=== PATIENT | male | born 1985 | race African-American/Black ===

== ENCOUNTER 2020-02-02 12:19 | Day surgery (SDC) | payer BC, SELFPAY ==
[2020-02-02] VITALS (7 sets, daily range): BP systolic 104–138; BP diastolic 64–86; PULSE 66–78; RESP 16–18; TEMP 36.4; O2SAT 93–99; BMI 33.6
[2020-02-02 13:18] LABS: Coronavirus 19 IgG Antibody Negative (Negative); Coronavirus 19 IgM Antibody Negative (Negative)
--- NOTE | 2020-02-02 14:59 | P.PCN_ITS ---
[facility] Procedure Note Procedure Note:: Upper Endoscopy Procedure Report: Esophagogastroduodenoscopy with cold biopsies and TTS balloon dilation Endoscopost: Surjit Hook II, MD Referring Physician: Giuliano Reyes MD Date of Procedure: February 02, 2020 Equipment: Olympus GIF 180 standard upper endoscope Sedation: MAC sedation Indications: Mr. Dowling is a 34-year-old gentleman who has developed dysphagia to solids over the last 3 weeks that has progressively worsened. Last week and he had an early food impaction with chicken. He did go to the emergency department but this eventually resolved after several minutes. He has had some increased belching. He does get some odynophagia. His symptoms occur primarily with solids but not liquids. He reports no heartburn, reflux or bloating. Procedure: Prior to the procedure, a history and physical exam was performed, and patient's medications and allergies were reviewed. The risks, benefits and alternatives of the sedation and procedure were discussed with the patient. All questions were answered and informed consent was obtained. The patient was brought to the procedure room. Patient identification and proposed procedure were verified by the physician and the nurse. The patient was placed in a left lateral decubitus position and the scope was passed under direct vision. Throughout the procedure, the patient's blood pressure, pulse, and oxygen saturations were monitored continuously. The upper GI endoscopy was accomplished without difficulty. The patient tolerated the procedure well. Findings: The scope was passed directly into the upper esophagus and advanced to the third portion of the duodenum. The post bulbar duodenum and duodenal bulb were normal but there was some prominence of the ampulla and minor ampulla. The scope was withdrawn through a normal duodenal bulb and pylorus into the stomach. There was a small prepyloric umbilicated benign lesion that was not biopsied. The remainder of the antrum, body and fundus of the stomach were grossly normal. Upon retroflexion there was a very small 1 to 2 cm hiatal hernia. The scope was then withdrawn into the esophagus. There was no evidence of reflux esophagitis or Colin's. There was corrugation and some esophageal stenosis. There was some furrowing. The findings were suggestive of eosinophilic esophagitis. Biopsies were taken from the distal and proximal esophagus. The esophagus was gently dilated to 15 and 18 mm with a TTS hydrostatic balloon in the esophagus. The procedure was then ended. Impression: 1. Esophageal corrugation and stenosis consistent with eosinophilic esophagitis status post dilation to 15 and 18 mm Plan: I will follow-up the biopsies. I am going to recommend omeprazole. I am also going to do RAST food allergy testing. If the biopsies are consistent with eosinophilic esophagitis, I will send prescription for fluticasone. I will have him follow-up in 12 weeks to assess for clinical improvement.
--- NOTE | 2020-02-02 15:16 | P.PN_ITS ---
[facility] Anesthesia Checklist - Patient Identification Patient Identification: Arm Band - Structural Data Admitted From: Home Planned Operative Procedure/s: egd Consent for Planned Operative Procedure(s) Verified: Yes Verified Documents: Surgical Consent, History and Physical - NPO Status Verified Time NPO: 00:00 - Additional verifications Anesthesia Reactions: No - Airway Assessment C-Spine Mobility Assessed: Yes (mp2) TMJ Mobility Assessed: Yes Dentition: Good Dentition - Neurological Assessment Level of Consciousness: Awake, Alert - Anesthesia Plan Anesthesia Risk discussed: Yes Anesthesia Plan: Verified ASA Class: I Anesthesia Type: [facility] History I have reviewed the patient's past medical history: Yes Medical History: Denies:: Cancer, Diabetes Mellitus Type 1, Diabetes Mellitus Type 2, Internal Pacemaker, MRSA, Seizures *Have you ever received a pneumonia vaccine?: No *Have you received a flu vaccine this season?: Yes Anesthesia experience/problems:: nac Laterality Cases: Bilateral: Tonsillectomy Other Surgeries: No: Pacemaker Amputation: No Fractures: Yes - *Social History Alcohol Intake: never Substance Use Type: denies use *Occupational Status:: employed Housing: house *Travel in the last 8 weeks: None Family Hx:: No significant family history
[2020-02-07 11:33] LABS: F001-IgE Egg White <0.10 kU/L (Class 0); F002-IgE Milk <0.10 kU/L (Class 0); F003-IgE Codfish <0.10 kU/L (Class 0); F004-IgE Wheat <0.10 kU/L (Class 0); F013-IgE Peanut <0.10 kU/L (Class 0); F014-IgE Soybean <0.10 kU/L (Class 0); F256-IgE Walnut <0.10 kU/L (Class 0); F338-IgE Scallop <0.10 kU/L (Class 0)
[2020-02-08 08:56] LABS: F010-IgE Sesame Seed <0.10 kU/L (Class 0)
== END 2020-02-02 15:45 | disposition home or self-care (01) ==
LOC: OUTP 12:23
PROVIDERS: PCP Pediatrics; Visit Provider Internal Medicine Gastroenterology
PROC: 0DJ08ZZ Inspection of Upper Intestinal Tract, Via Natural or Artificial Opening Endoscopic (ICD-10-PCS; CPT 43235; principal; 2020-02-02 13:30)
DX: K20.0 Eosinophilic esophagitis (principal); K22.2 Esophageal obstruction; K44.9 Diaphragmatic hernia without obstruction or gangrene; Z90.89 Acquired absence of other organs
CPT/HCPCS: 43239; 43249; 86003; 86008; 86328; C1726